=== PATIENT | male | born 1950 | race African-American/Black ===

== ENCOUNTER 2017-09-03 15:55 | Emergency (ER) | payer OTHER ==
[~2017-09-03] VITALS: Ht 177.8 cm; Wt 86.2 kg
[2017-09-03] MEDS ORDERED: ULTRAM 50MG TAB50 MG PO (17:19)
[2017-09-03] MEDS ORDERED: CYCLOBENZAPRINE5 MG PO (17:19)
[2017-09-03 17:49] VITALS: BP 127/88
== END 2017-09-03 17:50 | disposition home or self-care (01) ==
LOC: ER 15:55
DX: S39.012A Strain of muscle, fascia and tendon of lower back, initial encounter (principal); S16.1XXA Strain of muscle, fascia and tendon at neck level, initial encounter; I10 Essential (primary) hypertension; Z88.0 Allergy status to penicillin; Z88.1 Allergy status to other antibiotic agents; Z88.5 Allergy status to narcotic agent; V89.2XXA Person injured in unspecified motor-vehicle accident, traffic, initial encounter; Y93.89 Activity, other specified; Y92.89 Other specified places as the place of occurrence of the external cause; Y99.8 Other external cause status